=== PATIENT | male | born 1930 | race Caucasian/White ===

== ENCOUNTER 2018-10-22 18:16 | Inpatient (IN) | payer MEDICARE, OTHER ==
[~2018-10-22] VITALS: Ht 175.3 cm; Wt 83.9 kg
--- NOTE | 2018-10-22 18:30 | NUR ---
SHEREEN Sada [facility] FOR PSYCH EVALUATION, PATIENT IN BED, KEPT COMFORTABLE. WAITING FOR MD BAEZ.
[2018-10-22] MEDS ORDERED: FURO-145 PO (18:43)
[2018-10-22] MEDS ORDERED: ACET-868 PO (18:43)
[2018-10-22] MEDS ORDERED: CARB-94 PO (18:43)
[2018-10-22] MEDS ORDERED: MAG30ORA PO (18:43)
[2018-10-22] MEDS ORDERED: LACT1CAP71 PO (18:43)
[2018-10-22] MEDS ORDERED: FERR325T28 PO (18:43)
[2018-10-22] MEDS ORDERED: FINA5TAB11 PO (18:43)
[2018-10-22] MEDS ORDERED: NA P133E RC (18:43)
[2018-10-22] MEDS ORDERED: CYAN10006 IM (18:43)
[2018-10-22] MEDS ORDERED: CARV6.252 PO (18:43)
[2018-10-22] MEDS ORDERED: MAGN400O6 PO (18:43)
[2018-10-22] MEDS ORDERED: BUSP5TAB3 PO (18:43)
[2018-10-22] MEDS ORDERED: GABA-534 PO (18:43)
[2018-10-22] MEDS ORDERED: ASPI-1169 PO (18:43)
[2018-10-22] MEDS ORDERED: DOCU250C14 PO (18:43)
[2018-10-22] MEDS ORDERED: VALP250C PO (18:43)
[2018-10-22] MEDS ORDERED: FLUT1DIS3 IH (18:43)
[2018-10-22] MEDS ORDERED: ATOR10TA PO (18:43)
[2018-10-22] MEDS ORDERED: MULT-447 PO (18:43)
[2018-10-22] MEDS ORDERED: BISA10SU8 RC (18:43)
[2018-10-22] MEDS ORDERED: TAMS-12 PO (18:43)
[2018-10-22] MEDS ORDERED: MELA5TAB PO (18:43)
[2018-10-22] MEDS ORDERED: LORA0.5T PO (18:43)
[2018-10-22] MEDS ORDERED: PANT40TA2 PO (18:44)
[2018-10-22] MEDS ORDERED: ROPI0.5T PO (18:44)
[2018-10-22] MEDS ORDERED: HYDR-4384 PO (18:44)
[2018-10-22] MEDS ORDERED: VITA1TAB56 PO (18:44)
[2018-10-22 18:54] LABS: BASOPHILS # (AUTO) 0.2 /CMM (0.0-0.2); BASOPHILS % (AUTO) 3.2 % (0.0-2.0); EOSINOPHILS % (AUTO) 4.1 % (0.0-6.0); HEMATOCRIT 55 % (39-51); HEMOGLOBIN 18.1 g/dL (13.5-17.5); LYMPHOCYTES # (AUTO) 0.6 /CMM (0.8-4.8); MEAN CORPUSCULAR HGB CONC 33 g/dl (31.0-36.0); MEAN CORPUSCULAR VOLUME 98 fL (80-96); MONOCYTES # (AUTO) 0.7 /CMM (0.1-1.30); MONOCYTES % (AUTO) 10.5 % (2.0-12.0); NEUTROPHILS # (AUTO) 4.7 /CMM (1.8-8.9); NEUTROPHILS % (AUTO) 73.2 % (43.0-81.0); PLATELET COUNT (AUTO) 202 /CMM (150-450); WHITE BLOOD COUNT (AUTO) 6.4 K/uL (4.3-11.0)
[2018-10-22 19:03] LABS: CALCIUM, SERUM 9.2 mg/dL (8.5-10.1); CARBON DIOXIDE 32 mmol/L (21-32); CHLORIDE 106 mmol/L (98-107); CREATININE 1.3 mg/dL (0.6-1.3); GLUCOSE 120 mg/dL (74-106); POTASSIUM 3.7 mmol/L (3.5-5.1); SODIUM SERUM 144 mmol/L (136-145); UREA NITROGEN, BLOOD 26 mg/dL (7-18)
[2018-10-22 19:09] LABS: ACETAMINOPHEN < 2 ug/ml (10-30); ALANINE AMINOTRANSFERASE 16 U/L (12-78); ALBUMIN 3.6 g/dL (3.4-5.0); ALCOHOL, BLOOD < 3 mg/dL (0-0); ALKALINE PHOSPHATASE 81 U/L (46-116); ASPARTATE AMINOTRANSFERASE 21 U/L (15-37); BILIRUBIN,DIRECT 0.2 mg/dL (0.0-0.2); BILIRUBIN,TOTAL 0.8 mg/dL (0.2-1.0); SALICYLATE < 2.8 mg/dL (2.8-20.0); TOTAL PROTEIN, SERUM 7.5 g/dL (6.4-8.2)
--- NOTE | 2018-10-22 19:21 | NUR ---
HOUSE WIRER LUCIA ETA 1 HR
--- NOTE | 2018-10-22 19:26 | NUR ---
REPORT GIVEN TO MIRIAM WARE FOR CHRISTI.
[2018-10-22 19:51] LABS: BASOPHILS % (MANUAL) 1 % (0.0-2.0); EOSINOPHILS % (MANUAL) 2 % (0-4); LYMPHOCYTES % (MANUAL) 10 % (16-48); MONOCYTES % (MANUAL) 11 % (0-11.0); NEUTROPHILS % (MANUAL) 76 (42-76)
[2018-10-22 19:52] LABS: APPEARANCE,URINE Clear (CLEAR); BILIRUBIN,URINE Negative (NEGATIVE); BLOOD, URINE Trace-intact Ery/uL (NEGATIVE); COLOR,URINE Yellow (YELLOW); KETONES,URINE Negative (NEGATIVE); LEUKOCYTE ESTERASE ,URINE Small (NEGATIVE); NITRITE, URINE Positive (NEGATIVE); PH,URINE 5.5 (5.0-8.0); PROTEIN,URINE Trace mg/dl (NEGATIVE); UGLUCOSE Negative (NEGATIVE); UROBILINOGEN,URINE 0.2 EU/dL (0.2)
[2018-10-22 20:05] LABS: BACTERIA,URINE Many /HPF (None Seen)
[2018-10-22 20:06] LABS: SQUAMOUS EPITHELIAL CELL,UR Moderate /HPF (None Seen); URINE AMORPHOUS URATE Moderate /HPF (None Seen)
--- NOTE | 2018-10-22 20:58 | NUR ---
PT TRANSFERRED TO GPS. STABLE VIA WHEELCHAIR
--- NOTE | 2018-10-22 21:00 | NUR ---
GPS-ADMISSION NOTES: ADMITTED AN 88 YR-OLD, MALE, FROM [facility]. ADMITTED ON 5150 FOR DTO/GD. PER HOLD, PATIENT HAS BEEN RANDOMLY HITTING STAFF WHEN PASSING BY, VERBALLY ABUSIVE TO STAFF, LABILE, IMPULSIVE AND UNPREDICTABLE, NON-COMPLIANT WITH MEDIATIONS, CONFUSED, DISORGANIZED, AND DISORIENTED, STRIKING OUT STAFF WHEN STAFF TRIED TO HELP HIM WITH ADLS. UPON FACE TO FACE ASSESSMENT, PATIENT IS ALERT, ORIENTED TO SELF ONLY, CONFUSED, DISORGANIZED, UNCOOPERATIVE WITH CARE, UNKEMPT, ANXIOUS, AND EASILY GETS IRRITABLE. IN NO APPARENT DISTRESS NOTED. NO S/SX OF PAIN OR DISCOMFORT NOTED. BELONGINGS WERE INVENTORIED AND CHECKED FOR CONTRABAND. PT. IS UNDER THE PSYCHIATRIC CARE OF DR. JANICE MCKEON OBTAINED, AND UNDER THE MEDICAL CARE OF KEISHA RICHMOND, SEEN AND EXAMINED PATIENT AT BEDSIDE. SKIN ASSESSMENT DONE. BED LOCKED AND PLACED ON LOWEST POSITION TO MAINTAIN SAFETY. FALL PRECAUTIONS IMPLEMENTED. WILL CONTINUE TO MONITOR Q15 MINS. FOR SAFETY AND BEHAVIOR.
[2018-10-22 21:30] VITALS: BP 138/78
[2018-10-22] MEDS ORDERED: MELATONIN 5 MG XX PRN (21:30)
[2018-10-22] MEDS ORDERED: MAGNESIUM HYDROXIDE 30 ML UDC PO PRN ×2 (21:30)
[2018-10-22] MEDS ORDERED: HYDROCODONE/APAP 5/325MG 1 EACH TABLET PO PRN (21:30)
[2018-10-22] MEDS ORDERED: ALBUTEROL FS 2.5 MG/0.5 ML VIAL.NEB NEB PRN (21:30)
[2018-10-22] MEDS ORDERED: ACETAMINOPHEN 325 MG TABLET PO PRN ×2 (21:30)
[2018-10-22] MEDS ORDERED: CYANOCOBALAMIN 1,000 MCG/ML VIAL IM SCH (21:30)
[2018-10-22] MEDS ORDERED: BISACODYL SUPP (10 MG) 10 MG/SUPP.RECT SUPP.RECT RC PRN (21:30)
[2018-10-22] MEDS ORDERED: MAG HYDROX/AL HYDROX/SIMETH 30 ML UDC PO PRN (21:30)
--- NOTE | 2018-10-22 22:30 | NUR ---
GPS-RN CYANOCOBALAMIN 1,000MCG /ML VIA IM DUE AT 2130 UNABLE TO ADMINISTER, DUE TO MED NOT AVAILABLE FROM DEPT. RADIATION PROTECTION SPECIALIST CALLED ER AND [facility] STILL UNAVAILABLE. KEISHA RICHMOND MADE AWARE. WILL ENDORSE TO THE DAY SHIFT NURSE TO BE ADMINISTERED IN AM ORDERED.
[2018-10-22] MEDS: ropiniROLE 0.5 MG TABLET PO SCH (22:51)
[2018-10-22] MEDS: TAMSULOSIN 0.4 MG CAP.SR.24H PO SCH (22:52)
[2018-10-22] MEDS: ATORVASTATIN 10 MG TABLET PO SCH (22:52)
[2018-10-22] MEDS: TEMAZEPAM 7.5 MG CAPSULE PO PRN (23:28)
[2018-10-23] MEDS: clonazePAM 0.5 MG TABLET PO PRN ×2 (01:16→10:56)
--- NOTE | 2018-10-23 05:57 | NUR ---
GPS-RN PATIENT REFUSED EKG. PATIENT IS VERY UNCOOPERATIVE. DESPITE OF APPROPRIATE EDUCATION ON RISKS AND BENEFITS. PATIENT STILL STRONGLY REFUSED. KEISHA RICHMOND MADE AWARE OF REFUSAL OF EKG. AND ALSO NOTIFIED KEISHA RICHMOND OF CYANOCOBALAMIN 1,000MCG IM IS NOT AVAILABLE FROM DEPT/UNIT. HE ORDERED TO DISCONTINUE CYANOCOBALAMIN NOTED AND CARRIED OUT.
[2018-10-23] MEDS: PANTOPRAZOLE 40 MG TABLET.DR PO SCH (07:30)
[2018-10-23 07:50] LABS: BASOPHILS % (AUTO) 0.4 % (0.0-2.0); EOSINOPHILS % (AUTO) 4.1 % (0.0-6.0); HEMATOCRIT 51 % (39-51); HEMOGLOBIN 16.9 g/dL (13.5-17.5); LYMPHOCYTES # (AUTO) 0.7 /CMM (0.8-4.8); LYMPHOCYTES % (AUTO) 9.3 % (20.0-44.0); MEAN CORPUSCULAR HGB CONC 33 g/dl (31.0-36.0); MEAN CORPUSCULAR VOLUME 96 fL (80-96); MONOCYTES # (AUTO) 0.8 /CMM (0.1-1.30); MONOCYTES % (AUTO) 10.4 % (2.0-12.0); NEUTROPHILS # (AUTO) 5.6 /CMM (1.8-8.9); NEUTROPHILS % (AUTO) 75.8 % (43.0-81.0); PLATELET COUNT (AUTO) 206 /CMM (150-450); RED BLOOD CELL COUNT(AUTO) 5.31 MIL/uL (4.5-6.0); WHITE BLOOD COUNT (AUTO) 7.4 K/uL (4.3-11.0)
[2018-10-23 08:00] VITALS: BP 122/68
[2018-10-23 08:02] LABS: CHOLESTEROL 143 mg/dL (<200); HDL CHOLESTEROL 44 mg/dL (40-60); LDL 76 mg/dL (0-99); TRIGLYCERIDES 186 mg/dL (30-150)
[2018-10-23 08:03] LABS: ALANINE AMINOTRANSFERASE 22 U/L (12-78); ALBUMIN 3.4 g/dL (3.4-5.0); ALKALINE PHOSPHATASE 71 U/L (46-116); ASPARTATE AMINOTRANSFERASE 16 U/L (15-37); BILIRUBIN,TOTAL 0.9 mg/dL (0.2-1.0); CALCIUM, SERUM 9.1 mg/dL (8.5-10.1); CARBON DIOXIDE 27 mmol/L (21-32); CHLORIDE 106 mmol/L (98-107); CREATININE 1.2 mg/dL (0.6-1.3); GLUCOSE 125 mg/dL (74-106); SODIUM SERUM 144 mmol/L (136-145); TOTAL PROTEIN, SERUM 6.8 g/dL (6.4-8.2); UREA NITROGEN, BLOOD 27 mg/dL (7-18)
[2018-10-23] MEDS: CARVEDILOL 6.25 MG TABLET PO SCH ×2 (09:00→17:00)
[2018-10-23] MEDS: FUROSEMIDE 20 MG TABLET PO SCH (09:00)
[2018-10-23] MEDS: DOCUSATE SODIUM 250 MG CAPSULE PO SCH (09:00)
[2018-10-23] MEDS: CEPHALEXIN MONOHYDRATE 500 MG CAPSULE PO SCH ×2 (09:00→17:00)
[2018-10-23] MEDS: FERROUS SULFATE (325 MG) 325 MG/TAB TABLET PO SCH ×2 (09:00→17:00)
[2018-10-23] MEDS: FINASTERIDE (5 MG) 5 MG TABLET PO SCH (09:00)
[2018-10-23] MEDS: FLUTICASONE/VILANTEROL 1 EACH BLST.W.DEV IH SCH (09:00)
[2018-10-23] MEDS: CARBIDOPA/LEVODOPA 25/250 MG 1 UDTAB PO SCH ×3 (09:00→17:00)
[2018-10-23] MEDS: ACIDOPHILUS/BULGARICUS 1 EACH TAB.CHEW PO SCH ×2 (09:00→17:00)
[2018-10-23] MEDS: MULTIVITAMINS,THERAGRAN 1 UDTAB TABLET PO SCH (09:00)
[2018-10-23] MEDS: Z GUARD REMEDY 4 OZ OINT TP SCH ×2 (09:00→21:14)
[2018-10-23] MEDS: ASPIRIN 81 MG TAB.CHEW PO SCH (09:00)
[2018-10-23] MEDS: GABAPENTIN 300 MG CAPSULE PO SCH ×2 (09:00→17:00)
--- NOTE | 2018-10-23 09:00 | NUR ---
GPS RN NOTE: PT IN THE ROOM SITING IN THE BED REFUSED AM MEDICATIONS , REFUSED SKIN ASSESSMENT , REFUSED PT EVAL. DR CAMACHO AWARE NO NEW ORDERS AT THIS TIME . NOTED LEFT LOWER LEG SKIN TEAR PT REFUSED PICTURE TAKEN.
[2018-10-23] MEDS: busPIRone 5 MG TABLET PO SCH ×2 (10:55→17:00)
[2018-10-23 16:00] VITALS: BP 138/63
[2018-10-23] MEDS: VALPROIC ACID 250 MG/5 ML UDC PO SCH (17:00)
[2018-10-23 20:00] VITALS: BP 151/79
[2018-10-23] MEDS: ropiniROLE 0.5 MG TABLET PO SCH (21:14)
[2018-10-23] MEDS: ATORVASTATIN 10 MG TABLET PO SCH (21:14)
[2018-10-23] MEDS: TAMSULOSIN 0.4 MG CAP.SR.24H PO SCH (21:14)
[2018-10-23] MEDS: TEMAZEPAM 7.5 MG CAPSULE PO PRN (22:07)
[2018-10-24] MEDS: clonazePAM 0.5 MG TABLET PO PRN (01:40)
[2018-10-24 08:00] VITALS: BP 118/71
[2018-10-24] MEDS: VALPROIC ACID 250 MG/5 ML UDC PO SCH ×3 (08:54→16:23)
[2018-10-24] MEDS: busPIRone 5 MG TABLET PO SCH ×2 (08:55→16:23)
[2018-10-24] MEDS: FUROSEMIDE 20 MG TABLET PO SCH (08:55)
[2018-10-24] MEDS: FINASTERIDE (5 MG) 5 MG TABLET PO SCH (08:55)
[2018-10-24] MEDS: ACIDOPHILUS/BULGARICUS 1 EACH TAB.CHEW PO SCH ×2 (08:55→16:22)
[2018-10-24] MEDS: GABAPENTIN 300 MG CAPSULE PO SCH ×2 (08:55→16:22)
[2018-10-24] MEDS: DOCUSATE SODIUM 250 MG CAPSULE PO SCH (08:56)
[2018-10-24] MEDS: CEPHALEXIN MONOHYDRATE 500 MG CAPSULE PO SCH ×2 (08:56→16:22)
[2018-10-24] MEDS: FERROUS SULFATE (325 MG) 325 MG/TAB TABLET PO SCH ×2 (08:56→16:22)
[2018-10-24] MEDS: PANTOPRAZOLE 40 MG TABLET.DR PO SCH (08:56)
[2018-10-24] MEDS: MULTIVITAMINS,THERAGRAN 1 UDTAB TABLET PO SCH (08:56)
[2018-10-24] MEDS: ASPIRIN 81 MG TAB.CHEW PO SCH (08:57)
[2018-10-24] MEDS: CARVEDILOL 6.25 MG TABLET PO SCH ×2 (08:57→16:22)
[2018-10-24] MEDS: CARBIDOPA/LEVODOPA 25/250 MG 1 UDTAB PO SCH ×3 (09:00→16:33)
[2018-10-24] MEDS: FLUTICASONE/VILANTEROL 1 EACH BLST.W.DEV IH SCH (09:00)
[2018-10-24] MEDS: Z GUARD REMEDY 4 OZ OINT TP SCH ×2 (09:29→21:42)
[2018-10-24 16:00] VITALS: BP 120/63
--- NOTE | 2018-10-24 17:44 | NUR ---
PATIENT TRANSFERRED TO ROOM 213B PER NEIGHBOR'S REQUEST. ALERT AND ORIENTED X1, CONFUSED. NEEDS ATTENDED. NO SIGNIFICANT CHANGES THROUGHOUT THE SHIFT.
--- NOTE | 2018-10-24 19:30 | NUR ---
GPS RN NOTE, RECEIVED PATIENT AWAKE AND IN AMY CHAIR, NO S/S OR COMPLAINTS OF PAIN AT THIS TIME. PATIENT IS DISPLAYING NO S/S OF APPARENT DISTRESS AT THIS TIME. PATIENT BREATHING IS UNLABORED WITH EQUAL RISE AND FALL OF THE CHEST. PATIENT IS ALERT AND ORIENTED X 1-2 ON ROOM AIR WITH A SPO2 OF 98%. PATIENT IS MED COMPLIANT, CONFUSED AT TIMES, DISORGANIZED, DEPRESSED, COOPERATIVE, UNKEPT AND NEEDS REORIENTATION. PATIENT DENIES SUICIDE AND HOMICIDAL IDEATIONS AT THIS TIME. PATIENT ASSISTED WITH TURNING AND REPOSITIONING Q2HR AND PRN FOR COMFORT AND CIRCULATION. PATIENT HAS NO NEEDS AT THIS TIME. PATIENT EDUCATED ON THE USE OF THE CALL TOTH. PATIENT BED SIDE RAILS ARE UP X 2 FOR SAFETY, BED IS LOCKED AND LOW. WILL CONTINUE TO MONITOR AND MAINTAIN SAFETY Q15 MIN WITH THE HELP OF STAFF.
[2018-10-24 19:40] VITALS: BP 132/80
[2018-10-24] MEDS: TAMSULOSIN 0.4 MG CAP.SR.24H PO SCH (21:43)
[2018-10-24] MEDS: ATORVASTATIN 10 MG TABLET PO SCH (21:43)
[2018-10-24] MEDS: ropiniROLE 0.5 MG TABLET PO SCH (21:43)
[2018-10-25] MEDS: PANTOPRAZOLE 40 MG TABLET.DR PO SCH (07:30)
[2018-10-25 08:00] VITALS: BP 141/89
[2018-10-25] MEDS: CEPHALEXIN MONOHYDRATE 500 MG CAPSULE PO SCH ×2 (08:51→17:00)
[2018-10-25] MEDS: FINASTERIDE (5 MG) 5 MG TABLET PO SCH (08:51)
[2018-10-25] MEDS: busPIRone 5 MG TABLET PO SCH ×2 (08:52→17:00)
[2018-10-25] MEDS: VALPROIC ACID 250 MG/5 ML UDC PO SCH ×3 (08:52→17:00)
[2018-10-25] MEDS: GABAPENTIN 300 MG CAPSULE PO SCH ×2 (08:52→17:00)
[2018-10-25] MEDS: ACIDOPHILUS/BULGARICUS 1 EACH TAB.CHEW PO SCH ×2 (08:52→17:00)
[2018-10-25] MEDS: FERROUS SULFATE (325 MG) 325 MG/TAB TABLET PO SCH ×2 (08:52→17:00)
[2018-10-25] MEDS: DOCUSATE SODIUM 250 MG CAPSULE PO SCH (08:52)
[2018-10-25] MEDS: MULTIVITAMINS,THERAGRAN 1 UDTAB TABLET PO SCH (08:52)
[2018-10-25] MEDS: FLUTICASONE/VILANTEROL 1 EACH BLST.W.DEV IH SCH (08:53)
[2018-10-25] MEDS: ASPIRIN 81 MG TAB.CHEW PO SCH (08:53)
[2018-10-25] MEDS: CARBIDOPA/LEVODOPA 25/250 MG 1 UDTAB PO SCH ×3 (09:00→17:00)
[2018-10-25] MEDS: CARVEDILOL 6.25 MG TABLET PO SCH ×2 (09:05→17:00)
[2018-10-25] MEDS: FUROSEMIDE 20 MG TABLET PO SCH (09:05)
[2018-10-25] MEDS: Z GUARD REMEDY 4 OZ OINT TP SCH ×2 (09:06→21:41)
--- NOTE | 2018-10-25 11:12 | NUR ---
WOUND CARE CONSULT: PT PRESENTS WITH LEFT ANTERIOR LOWER LEG SKIN TEAR. RECOMMEND DPM CONSULT. DR BLACK NOTIFIED OF CONSULT REQUEST. LIMITED ASSESSMENT DUE TO PT VERY ANGRY AND AGGRESSIVE. PT KICKS HIS LEGS FREQUENTLY. CURRENT SONIA SCORE IS 17. WILL SEE PRN. YOON IN AGREEMENT WITH PLAN OF CARE. Addendum: 10/25/18 at 1113 by SHIMA MADDEN WNDNU Amended: Links added.
--- NOTE | 2018-10-25 11:17 | NUR ---
SW contacted [facility] Address: [place] [address] and spoke with L[place], compensation coordinator who stated pt will return to their facility.
--- NOTE | 2018-10-25 11:40 | NUR ---
SW contacted pts Whit [phone] for collateral information. was unable to provide SW with additional information. stated she was busy only provided SW with basic information.
--- NOTE | 2018-10-25 11:59 | NUR ---
INITIAL DISCHARGE PLAN: Per Whit [phone] pt will return to [facility] Address: [place] [address] . JOYCE confirmed with [employer] pool coordinator who stated pt will return once stable for discharge. JOYCE will help form a safe and proper discharge im collaboration with .
--- NOTE | 2018-10-25 15:11 | NUR ---
GROUP THERAPY: Pt is unable to participant in group therapy as pt is confused, disoriented, and disorganized. Pt is only alert and oriented to self.
[2018-10-25 16:57] VITALS: BP 149/89
[2018-10-25 19:54] VITALS: BP 134/74
[2018-10-25] MEDS: ropiniROLE 0.5 MG TABLET PO SCH (21:38)
[2018-10-25] MEDS: TAMSULOSIN 0.4 MG CAP.SR.24H PO SCH (21:38)
[2018-10-25] MEDS: ATORVASTATIN 10 MG TABLET PO SCH (21:39)
[2018-10-25] MEDS: TEMAZEPAM 7.5 MG CAPSULE PO PRN (22:15)
[2018-10-26] MEDS: clonazePAM 0.5 MG TABLET PO PRN ×2 (02:00→02:18)
--- NOTE | 2018-10-26 02:18 | NUR ---
GPS-RN PATIENT IS ANXIOUS AND RESTLESS. KLONOPIN 0.5MG PO GIVEN BUT PATIENT REFUSED. DESPITE OF APPROPRIATE EDUCATION. ATTEMPTED/OFFERED X3, PATIENT STRONGLY REFUSED. WILL CONTINUE TO MONITOR.
[2018-10-26 08:00] VITALS: BP 126/69
[2018-10-26] MEDS: FERROUS SULFATE (325 MG) 325 MG/TAB TABLET PO SCH ×2 (09:40→17:53)
[2018-10-26] MEDS: MULTIVITAMINS,THERAGRAN 1 UDTAB TABLET PO SCH (09:40)
[2018-10-26] MEDS: VALPROIC ACID 250 MG/5 ML UDC PO SCH ×4 (09:40→17:57)
[2018-10-26] MEDS: CEPHALEXIN MONOHYDRATE 500 MG CAPSULE PO SCH ×2 (09:40→17:53)
[2018-10-26] MEDS: GABAPENTIN 300 MG CAPSULE PO SCH ×2 (09:40→17:53)
[2018-10-26] MEDS: ACIDOPHILUS/BULGARICUS 1 EACH TAB.CHEW PO SCH ×2 (09:40→17:54)
[2018-10-26] MEDS: busPIRone 5 MG TABLET PO SCH ×2 (09:41→17:53)
[2018-10-26] MEDS: ASPIRIN 81 MG TAB.CHEW PO SCH (09:41)
[2018-10-26] MEDS: FUROSEMIDE 20 MG TABLET PO SCH (09:41)
[2018-10-26] MEDS: DOCUSATE SODIUM 250 MG CAPSULE PO SCH (09:41)
[2018-10-26] MEDS: FINASTERIDE (5 MG) 5 MG TABLET PO SCH (09:41)
[2018-10-26] MEDS: CARVEDILOL 6.25 MG TABLET PO SCH ×2 (09:42→17:55)
[2018-10-26] MEDS: PANTOPRAZOLE 40 MG TABLET.DR PO SCH (09:42)
[2018-10-26] MEDS: CARBIDOPA/LEVODOPA 25/250 MG 1 UDTAB PO SCH ×3 (09:44→17:56)
[2018-10-26] MEDS ORDERED: Z GUARD REMEDY 2 OZ OINT TP SCH (09:49)
[2018-10-26] MEDS: FLUTICASONE/VILANTEROL 1 EACH BLST.W.DEV IH SCH (10:13)
--- NOTE | 2018-10-26 15:14 | NUR ---
GROUP THERAPY: SW prompted pt to participate in group therapy. Pt is unable to participant in group therapy as pt is confused, disoriented, and disorganized. Pt is only alert and oriented to self.
[2018-10-26 16:00] VITALS: BP 130/69
--- NOTE | 2018-10-26 18:00 | NUR ---
pt. alert and oriented x1.most of day oob in chair.yells out foul language from time to time.dr. martinez in and wd care orders written.wd. care done.
[2018-10-26 20:06] VITALS: BP 119/70
[2018-10-26] MEDS: Z GUARD REMEDY 2 OZ OINT TP SCH (21:17)
[2018-10-26] MEDS: TAMSULOSIN 0.4 MG CAP.SR.24H PO SCH (22:00)
[2018-10-26] MEDS: ATORVASTATIN 10 MG TABLET PO SCH (22:00)
[2018-10-26] MEDS: ropiniROLE 0.5 MG TABLET PO SCH (22:00)
--- NOTE | 2018-10-26 22:15 | NUR ---
GPS-RN GPS-RN PATIENT REFUSED TO TAKE HIS SCHEDULED MEDS. DESPITE OF APPROPRIATE EDUCATION ON RISKS AND BENEFITS. ATTEMPTED X3, PATIENT STRONGLY REFUSED. WILL CONTINUE TO MONITOR.
[2018-10-26] MEDS: TEMAZEPAM 7.5 MG CAPSULE PO PRN (22:44)
--- NOTE | 2018-10-26 22:49 | NUR ---
GPS-RN RESTORIL REFUSED BY PATIENT AFTER OPENING. DESPITE OF EDUCATION ON RISKS AND BENEFITS. WASTED IN PYXIS WITNESSED BY ANOTHER RN AND DISPOSED IN MED WASTE DISPOSAL.
[2018-10-27 08:00] VITALS: BP 155/73
[2018-10-27] MEDS: ACIDOPHILUS/BULGARICUS 1 EACH TAB.CHEW PO SCH ×2 (08:34→16:54)
[2018-10-27] MEDS: GABAPENTIN 300 MG CAPSULE PO SCH ×2 (08:34→16:54)
[2018-10-27] MEDS: busPIRone 5 MG TABLET PO SCH ×2 (08:34→16:54)
[2018-10-27] MEDS: VALPROIC ACID 250 MG/5 ML UDC PO SCH ×3 (08:34→16:54)
[2018-10-27] MEDS: DOCUSATE SODIUM 250 MG CAPSULE PO SCH (08:34)
[2018-10-27] MEDS: ASPIRIN 81 MG TAB.CHEW PO SCH (08:34)
[2018-10-27] MEDS: CARVEDILOL 6.25 MG TABLET PO SCH ×2 (08:35→16:53)
[2018-10-27] MEDS: FERROUS SULFATE (325 MG) 325 MG/TAB TABLET PO SCH ×2 (08:35→16:54)
[2018-10-27] MEDS: MULTIVITAMINS,THERAGRAN 1 UDTAB TABLET PO SCH (08:35)
[2018-10-27] MEDS: PANTOPRAZOLE 40 MG TABLET.DR PO SCH (08:35)
[2018-10-27] MEDS: CEPHALEXIN MONOHYDRATE 500 MG CAPSULE PO SCH ×2 (08:35→16:53)
[2018-10-27] MEDS: FINASTERIDE (5 MG) 5 MG TABLET PO SCH (08:35)
[2018-10-27] MEDS: FUROSEMIDE 20 MG TABLET PO SCH (08:35)
[2018-10-27] MEDS: CARBIDOPA/LEVODOPA 25/250 MG 1 UDTAB PO SCH ×3 (08:36→16:57)
[2018-10-27] MEDS: FLUTICASONE/VILANTEROL 1 EACH BLST.W.DEV IH SCH (08:36)
[2018-10-27] MEDS: Z GUARD REMEDY 2 OZ OINT TP SCH ×2 (08:37→21:31)
--- NOTE | 2018-10-27 13:55 | NUR ---
Group note: Pt attended a group session on 10/27/18 at 11AM discussing the topic of what their goals are for when they are in the hospital and once they are discharged. S: Pt stated, I want to return to my because I am happy with her and I do not understand why I am here in the hospital. O: Pt was present during the group session and was cooperative. Pt appeared to be in a euthymic mood and presented with a calm affect. Pt maintained appropriate eye contact and her tone of voice appeared to be very throughout the group. Pt appeared to be confused and disorganized. A: JOYCE informed the pt of the reason that he was admitted to the hospital and asked the pt to identify any goals he would have regarding that and he stated that he did not need to have any goals because he does not understand why he was admitted. JOYCE then discussed the importance of medication compliance with the pt and he stated that he understood that he needs to be compliant otherwise he will become unstable. P: Pt will continue milieu treatment and medication stabilization.
[2018-10-27 16:00] VITALS: BP 140/76
[2018-10-27 20:00] VITALS: BP 86/52
[2018-10-27 20:28] VITALS: BP 86/52
[2018-10-27 20:30] VITALS: BP 112/56
[2018-10-27] MEDS: TAMSULOSIN 0.4 MG CAP.SR.24H PO SCH (21:30)
[2018-10-27] MEDS: ATORVASTATIN 10 MG TABLET PO SCH (21:30)
[2018-10-27] MEDS: ropiniROLE 0.5 MG TABLET PO SCH (21:30)
[2018-10-27] MEDS: clonazePAM 0.5 MG TABLET PO PRN (22:43)
[2018-10-28 08:00] VITALS: BP 137/79
[2018-10-28] MEDS: FERROUS SULFATE (325 MG) 325 MG/TAB TABLET PO SCH ×2 (08:28→16:49)
[2018-10-28] MEDS: FINASTERIDE (5 MG) 5 MG TABLET PO SCH (08:28)
[2018-10-28] MEDS: PANTOPRAZOLE 40 MG TABLET.DR PO SCH (08:28)
[2018-10-28] MEDS: CEPHALEXIN MONOHYDRATE 500 MG CAPSULE PO SCH ×2 (08:28→16:48)
[2018-10-28] MEDS: ACIDOPHILUS/BULGARICUS 1 EACH TAB.CHEW PO SCH ×2 (08:29→16:48)
[2018-10-28] MEDS: FUROSEMIDE 20 MG TABLET PO SCH (08:29)
[2018-10-28] MEDS: ASPIRIN 81 MG TAB.CHEW PO SCH (08:29)
[2018-10-28] MEDS: DOCUSATE SODIUM 250 MG CAPSULE PO SCH (08:29)
[2018-10-28] MEDS: VALPROIC ACID 250 MG/5 ML UDC PO SCH ×3 (08:30→16:47)
[2018-10-28] MEDS: GABAPENTIN 300 MG CAPSULE PO SCH ×2 (08:30→16:49)
[2018-10-28] MEDS: CARVEDILOL 6.25 MG TABLET PO SCH ×2 (08:30→16:49)
[2018-10-28] MEDS: MULTIVITAMINS,THERAGRAN 1 UDTAB TABLET PO SCH (08:30)
[2018-10-28] MEDS: busPIRone 5 MG TABLET PO SCH ×3 (08:31→16:48)
[2018-10-28] MEDS: Z GUARD REMEDY 2 OZ OINT TP SCH ×2 (09:10→21:52)
[2018-10-28] MEDS: FLUTICASONE/VILANTEROL 1 EACH BLST.W.DEV IH SCH (09:10)
[2018-10-28] MEDS: CARBIDOPA/LEVODOPA 25/250 MG 1 UDTAB PO SCH ×3 (09:10→16:49)
--- NOTE | 2018-10-28 15:57 | NUR ---
Group note: SW prompted pt to participate in group therapy. Pt is unable to participant in group therapy as pt is confused, disoriented, and disorganized. Pt is only alert and oriented to self.
[2018-10-28 16:00] VITALS: BP 126/73
[2018-10-28] MEDS: ropiniROLE 0.5 MG TABLET PO SCH (21:52)
[2018-10-28] MEDS: TAMSULOSIN 0.4 MG CAP.SR.24H PO SCH (21:52)
[2018-10-28] MEDS: ATORVASTATIN 10 MG TABLET PO SCH (21:52)
[2018-10-29 08:00] VITALS: BP 140/73
[2018-10-29] MEDS: FLUTICASONE/VILANTEROL 1 EACH BLST.W.DEV IH SCH (09:09)
[2018-10-29] MEDS: busPIRone 5 MG TABLET PO SCH ×2 (09:09→12:29)
[2018-10-29] MEDS: FERROUS SULFATE (325 MG) 325 MG/TAB TABLET PO SCH (09:09)
[2018-10-29] MEDS: CEPHALEXIN MONOHYDRATE 500 MG CAPSULE PO SCH (09:09)
[2018-10-29] MEDS: VALPROIC ACID 250 MG/5 ML UDC PO SCH ×2 (09:09→12:29)
[2018-10-29 09:10] VITALS: BP 140/73
[2018-10-29] MEDS: FUROSEMIDE 20 MG TABLET PO SCH (09:10)
[2018-10-29] MEDS: ACIDOPHILUS/BULGARICUS 1 EACH TAB.CHEW PO SCH (09:10)
[2018-10-29] MEDS: GABAPENTIN 300 MG CAPSULE PO SCH (09:10)
[2018-10-29] MEDS: CARVEDILOL 6.25 MG TABLET PO SCH (09:10)
[2018-10-29] MEDS: ASPIRIN 81 MG TAB.CHEW PO SCH (09:10)
[2018-10-29] MEDS: MULTIVITAMINS,THERAGRAN 1 UDTAB TABLET PO SCH (09:10)
[2018-10-29] MEDS: FINASTERIDE (5 MG) 5 MG TABLET PO SCH (09:10)
[2018-10-29] MEDS: PANTOPRAZOLE 40 MG TABLET.DR PO SCH (09:11)
[2018-10-29] MEDS: Z GUARD REMEDY 2 OZ OINT TP SCH (09:11)
[2018-10-29] MEDS: DOCUSATE SODIUM 250 MG CAPSULE PO SCH (09:11)
[2018-10-29] MEDS: CARBIDOPA/LEVODOPA 25/250 MG 1 UDTAB PO SCH ×2 (09:14→12:29)
--- NOTE | 2018-10-29 11:03 | NUR ---
Pt. with an order to D/C hold and D/C to [facility] and to follow up with Psyche and Medical doctors. Pt. without distress, denies suicidal and homicidal. Pictures taken the the skin issues and belongings ready. made aware of the discharge and reconciled the meds. Addendum: 10/29/18 at 1203 by JENNI PEREZ RN Pt. is for discharge to [facility].
--- NOTE | 2018-10-29 13:08 | NUR ---
Report given to Lorie BARTLETT) over the facility. Paper works ready and pt. is ready for discharge.
--- NOTE | 2018-10-29 13:35 | NUR ---
Pt. left the unit via ambulance and transported via a gurney. Left without distress and on stable condition. V/S taken: BP 106/65, WA 70, RR 18, oxygen sat 98% and temp 98.0.
--- NOTE | 2018-10-29 13:42 | NUR ---
DISCHARGE NOTE: Pt was discharged at 1:30pm via [facility] to [facility] Address: [address] , [place] [address] . Pts Whit [phone] has been notified. Pts mood was euthymic with congruent affect. Pt denied visual/auditory hallucinations and denied suicidal/homicidal ideation. Pt will be under the care of Psychiatrist: Dr. Curry, located at [address] [place] [address]; and Package Dye Stand Loader: Dr. George, located at [address] [place] [address] [id number], [place] [address]; . The multidisciplinary exitcare form was done, printed, signed, and given to the patient.
== END 2018-10-29 13:35 | DRG 885 ==
LOC: ER 18:20 → GPS 20:47
PROVIDERS: ADMIT Psychiatry & Neurology Psychiatry; ATTEND Nurse Practitioner Acute Care
DX: F31.60 Bipolar disorder, current episode mixed, unspecified (principal); N17.0 Acute kidney failure with tubular necrosis; I11.0 Hypertensive heart disease with heart failure; N39.0 Urinary tract infection, site not specified; I50.32 Chronic diastolic (congestive) heart failure; D68.59 Other primary thrombophilia; F02.81 Dementia in other diseases classified elsewhere, unspecified severity, with behavioral disturbance; J44.9 Chronic obstructive pulmonary disease, unspecified; E78.5 Hyperlipidemia, unspecified; E66.9 Obesity, unspecified; D69.2 Other nonthrombocytopenic purpura; Z95.0 Presence of cardiac pacemaker; Z73.6 Limitation of activities due to disability; B96.89 Other specified bacterial agents as the cause of diseases classified elsewhere; G25.81 Restless legs syndrome; G20 Parkinson's disease; I48.91 Unspecified atrial fibrillation; N40.0 Benign prostatic hyperplasia without lower urinary tract symptoms; Z68.27 Body mass index [BMI] 27.0-27.9, adult; S81.812A Laceration without foreign body, left lower leg, initial encounter; S81.811A Laceration without foreign body, right lower leg, initial encounter; X58.XXXA Exposure to other specified factors, initial encounter; Y93.9 Activity, unspecified; Y92.009 Unspecified place in unspecified non-institutional (private) residence as the place of occurrence of the external cause; L98.8 Other specified disorders of the skin and subcutaneous tissue; S71.112A Laceration without foreign body, left thigh, initial encounter; L57.0 Actinic keratosis
CPT/HCPCS: 36415; 80048-TC; 80053-TC; 80061-TC; 80076-TC; 80164-TC; 80305; 81000-TC; 85025-TC; 87081-TC; 87086-TC; 97116-TC; 97530-TC; A6402; G0480; J3420